=== PATIENT | male | born 1995 | race Caucasian/White ===

== ENCOUNTER → 2017-03-07 | Outpatient (REF) ==
[~2017-03-07] MED LIST: DOXYCYCLINE PO; NORCO 325 MG-51 TAB PO; VENTOLIN0.09 MG IH
== END ==
LOC: WSOH 15:26
DX: Z02.1 Encounter for pre-employment examination (principal)

== ENCOUNTER → 2017-04-13 | Outpatient (REF) | LOC: WSOH 10:40 | DX: Z01.89 Encounter for other specified special examinations (principal) ==

== ENCOUNTER → 2017-04-16 | Outpatient (REF) | LOC: WSOH 10:03 | DX: Z02.89 Encounter for other administrative examinations (principal) ==

== ENCOUNTER → 2017-04-20 | Outpatient (REF) | LOC: WSOH 12:15 | DX: Z01.89 Encounter for other specified special examinations (principal) ==

== ENCOUNTER → 2017-05-15 | Outpatient (REF) | LOC: WSOH 11:02 | DX: Z02.89 Encounter for other administrative examinations (principal) ==

== ENCOUNTER → 2017-06-18 | Outpatient (REF) | LOC: WSOH 12:45 | DX: Z02.89 Encounter for other administrative examinations (principal) ==

== ENCOUNTER → 2018-05-21 | Outpatient (REF) ==
[2018-05-21 17:04] LABS: THYROID STIMULATING HORMONE 2.4 uIU/mL (0.465-4.680)
== END ==
LOC: ZLAB.WCH 15:59
PROVIDERS: Nurse Practitioner Family
DX: Z01.89 Encounter for other specified special examinations (principal)